=== PATIENT | male | born 1965 | race Caucasian/White ===

== ENCOUNTER 2016-07-25 07:07 | Day surgery (SDC) | payer OTHER ==
[~2016-07-25 07:07] MED LIST: IV START KIT ONE; LACTATED RINGERS 1,000 ML ONE; LIDOCAINE 2% (PRES FREE) 5 ML VIAL ONE; PROPOFOL 40 ML IV ONE
[2016-07-25] MEDS ORDERED: IV START KIT ONE (09:37)
[2016-07-25] MEDS ORDERED: LACTATED RINGERS 1,000 ML IV SCH (10:18)
[2016-07-25] MEDS ORDERED: ONDANSETRON 4 MG/2ML 2 ML VIAL IV PRN (10:18)
[2016-07-25] MEDS ORDERED: LIDOCAINE 1% 2 ML VIAL ID PRN (10:18)
== END 2016-07-25 11:02 | disposition home or self-care (01) ==
LOC: SDC 07:07
PROVIDERS: ATTEND Surgery
PROC: 0DJD8ZZ Inspection of Lower Intestinal Tract, Via Natural or Artificial Opening Endoscopic (ICD-10-PCS; principal; 2016-07-25)
DX: Z12.11 Encounter for screening for malignant neoplasm of colon (principal); I10 Essential (primary) hypertension; Z87.891 Personal history of nicotine dependence; Z88.8 Allergy status to other drugs, medicaments and biological substances
CPT/HCPCS: 45378; J7120